=== PATIENT | male | born 1970 ===

== ENCOUNTER 2024-06-05 07:38 | Day surgery (SDC) | payer BC ==
[2024-06-02 10:28] VITALS: BMI 28.5
[2024-06-05] MEDS ORDERED: Dexamethasone 4 mg/ml Vial ONE (08:55)
[2024-06-05] MEDS ORDERED: SUGAMMADEX SODIUM 200 MG/2 ML VIAL ONE (08:55)
[2024-06-05] MEDS ORDERED: Lidocaine 2% PF 100 mg/5 ml Syringe ONE (08:56)
[2024-06-05] MEDS ORDERED: Rocuronium Bromide 10 MG/ML (10ML VIAL) ONE (08:56)
[2024-06-05] MEDS ORDERED: PROPOFOL 20 ML ONE (08:56)
[2024-06-05] MEDS ORDERED: Ondansetron PF 4 MG/2 ML Vial ONE (08:56)
[2024-06-05] MEDS ORDERED: Protamine Sulfate 50 MG/5 ML VIAL ONE (09:11)
[2024-06-05] MEDS ORDERED: Heparin 10,000 UNITS/ 10 ML VIAL ONE (09:11)
[2024-06-05] MEDS ORDERED: Isoproterenol 0.2 MG/1 ML AMP ONE (09:12)
[2024-06-05] MEDS ORDERED: Heparin 25,000 units/D5W 500 ML ONE (09:12)
[2024-06-05] MEDS ORDERED: fentaNYL 50 mcg/mL 1 mL Vial ONE ×2 (10:44→12:14)
[2024-06-05] MEDS ORDERED: Midazolam HCl 2 mg/2 ml Vial ONE (11:17)
[2024-06-05] MEDS ORDERED: Sevoflurane 250 ML INH ANEST BOTTLE ONE (11:35)
[2024-06-05] MEDS ORDERED: PHENYLEPHRINE-NS 100 MCG/ML 10 ML SYRINGE ONE (11:41)
[2024-06-05] MEDS ORDERED: PROPOFOL 40 ML ONE (12:16)
== END 2024-06-05 17:26 | disposition home or self-care (01) ==
LOC: SDC 07:38
PROVIDERS: ATTEND Internal Medicine Cardiovascular Disease
PROC: 4A023FZ Measurement of Cardiac Rhythm, Percutaneous Approach (ICD-10-PCS; principal; 2024-06-05)
PROC: 4A0234Z Measurement of Cardiac Electrical Activity, Percutaneous Approach (ICD-10-PCS; principal; 2024-06-05)
PROC: 02583ZZ Destruction of Conduction Mechanism, Percutaneous Approach (ICD-10-PCS; principal; 2024-06-05)
DX: I48.19 Other persistent atrial fibrillation (principal); I48.3 Typical atrial flutter
CPT/HCPCS: 85347; 93005; 93622; 93623; 93656; 93657; C1730; C1732; C1759; C1760; C1894; J1100; J1644; J2001; J2250; J2405; J2704; J2720; J3010